=== PATIENT | male | born 1995 | race Caucasian/White ===

== ENCOUNTER 2020-08-28 12:05 | Observation (INO) | payer MEDICAID, OTHER, SELFPAY ==
[~2020-08-28] VITALS: Ht 162.6 cm; Wt 82.6 kg
[2020-08-28] MEDS ORDERED: NS 1,000 ML IV ONE ×3 (12:30→18:00)
[2020-08-28 13:56] LABS: BASO % 0.8 % (0.0-1.0); EOS % 0.6 % (0.0-3.0); HEMATOCRIT 49.8 % (42.0-52.0); HEMOGLOBIN 17.2 g/dl (13.5-17.5); LYMPH # 1.4 10^3/uL (1.5-5.0); LYMPH % 27.2 % (24.0-44.0); MEAN CORPUSCULAR HEMOGLOBIN 30.9 pg (27.0-33.0); MEAN CORPUSCULAR HGB CONC 34.5 g/dl (32.0-36.5); MEAN CORPUSCULAR VOLUME 89.4 fl (80.0-96.0); MONO # 0.5 10^3/uL (0.0-0.8); MONO % 9.3 % (0.0-5.0); NEUTROPHILS # 3.3 10^3/uL (1.5-8.5); NEUTROPHILS % 61.7 % (36.0-66.0); PLATELET COUNT, AUTOMATED 272 10^3/uL (150-450); RED BLOOD COUNT 5.57 10^6/uL (4.30-6.10); WHITE BLOOD COUNT 5.3 10^3/uL (4.0-10.0)
[2020-08-28] MEDS ORDERED: ONDA8TAB10 PO (15:03)
[2020-08-28] MEDS ORDERED: FLUO20CA22 PO (15:03)
[2020-08-28] MEDS ORDERED: GABA800T4 PO (15:03)
[2020-08-28] MEDS ORDERED: SUMA50TA2 PO (15:03)
[2020-08-28] MEDS ORDERED: VYVA50CA4 PO (15:03)
[2020-08-28] MEDS ORDERED: LORA-622 PO (15:03)
[2020-08-28] MEDS ORDERED: TRAZ1TAB12 PO (15:03)
[2020-08-28] MEDS ORDERED: ALPR2TAB3 PO (15:03)
[2020-08-28] MEDS ORDERED: BUPR8SUB SL (15:03)
[2020-08-28 15:46] LABS: ACETAMINOPHEN LEVEL < 2.0 UG/ML (10.0-30.0); ALBUMIN 4.2 GM/DL (3.2-5.2); ALT/SGPT 27 U/L (12-78); BILIRUBIN,DIRECT 0.2 MG/DL (0.0-0.2); BILIRUBIN,TOTAL 0.6 MG/DL (0.2-1.0); BLOOD UREA NITROGEN 8 MG/DL (7-18); CALCIUM LEVEL 8.9 MG/DL (8.5-10.1); CARBON DIOXIDE LEVEL 28 MEQ/L (21-32); CHLORIDE LEVEL 106 MEQ/L (98-107); CPK CREATINE PHOSPHOKINASE 98 U/L (39-308); CREATININE FOR GFR 0.89 MG/DL (0.70-1.30); ETHYL ALCOHOL (ETHANOL) < 0.003 % (0.000-0.010); GLOMERULAR FILTRATION RATE > 60.0 (>60); GLUCOSE, FASTING 92 MG/DL (70-100); POTASSIUM SERUM 4.5 MEQ/L (3.5-5.1); SALICYLATE LEVEL < 1.7 MG/DL (5.0-30.0); SODIUM LEVEL 140 MEQ/L (136-145); TOTAL PROTEIN 7.1 GM/DL (6.4-8.2)
[2020-08-28] MEDS ORDERED: D5W/0.45% SODIUM CHLORIDE 1,000 ML IV ONE (16:00)
[2020-08-28] MEDS ORDERED: D5W/0.45% SODIUM CHLORIDE 1,000 ML IV SCH (16:27)
--- NOTE | 2020-08-28 17:06 | HPEPDOC ---
[facility] Medical History & Physical Date of Admission Aug 28, 2020 Date of Service: Aug 28, 2020 History and Physical CHIEF COMPLAINT: Altered mental status/intoxication with amphetamines and gabapentin HISTORY OF PRESENT ILLNESS (History is obtained from records) 24-year-old male with history of polysubstance abuse, alcohol, tobacco hair when marijuana, "DIRTY 30", brought in by police when the patient was found to be breaking into a vehicle vehicle's etcher printed circuit boards called the police and he was brought in and was found to be intoxicated with altered mental status. Emergency room social insurance analyst spoke with the patient's father in [place] Vishnu Pop, who is trying to obtain custody of the patient's son to remove him from foster care. The patient has lost custody of his son due to polysubstance abuse and addictions. He was previously living with his father and was subsequently evicted because of substance abuse and now return to [place]. Currently living in [place]. Patient's mother is . He does have grandparents, Barney Rowan [phone] in the emergency room. EKG was normal sinus rhythm, no prolonged QT, acetaminophen and aspirin were all negative. CBC, metabolic panel were negative. Per poison control. Patient is to be monitored overnight and discharged if stable in the morning. Patient denies any suicidal or homicidal ideation. Once he came around. Patient Saying "I'm so rry that I let everyone down . I let my father down." Patient is agreeable to seeing a psychiatrist in the morning for his depression and polysubstance abuse vehemently denies any suicidal ideation or suicidal attempt. Sitter has been placed due to altered mental status. Hospitalist was called to admit for observation overnight due to drug overdose, which was intentional. ASA, Acetaminophen, alcoho are negative. urine tox screen pending. Per records, pt had a drug overdose with amphetamines and gabapentin. PAST MEDICAL HISTORY: Polysubstance abuse heroin, methamphetamine "dirty 30", alcohol abuse, cigarette abuse PAST SURGICAL HISTORY: Unable to be obtained SOCIAL HISTORY: Polysubstance abuse with heroin, alcohol, methamphetamine, currently living in [place]. Lost custody of his son who is currently in foster care. Patient's father is trying to obtain custody of the patient's son in [place]. Half a pack a day cigarette abuse. Alcohol binge. Methamphetamine. Unemployed FAMILY HISTORY: Father alive, lives in [place] phone number [phone] Vishnu POP Mother due to cancer ALLERGIES: Please see below. REVIEW OF SYSTEMS: Unable to obtain due to all of altered mental status HOME MEDICATIONS: Please see below. PHYSICAL EXAMINATION: VITAL SIGNS: See below General: Diaphoretic, tearful and crying at the bedside agitated but cooperative, non-belligerent, awake, alert, oriented to himself rambling HEENT: Pupils equally round, reactive to light and accommodation. Moist mucous membranes. No JVD, thyromegaly, no cervical lymphadenopathy CARDIOVASCULAR: Sinus rhythm, regular rate rhythm, S1, S2. No murmurs noted LUNGS: Clear to auscultation. No wheezing, rales or rhonchi ABDOMEN: Positive bowel sounds, soft, nontender, nondistended. No hepatospl enomegaly. No abdominal bruit EXTREMITIES: No cyanosis, clubbing or pitting edema NEUROLOGICAL: Confused, lethargic but arousable, tearful, not fully following commands slightly incoherent and rambling PSYCHIATRIC: low mood EKG sinus rhythm, ventricular rate of 72, indeterminate axis, QT 389 ms, QTC 413, QRS duration 102 LABORATORY DATA: See below. ASSESSMENT: 24-year-old male with history of polysubstance abuse, alcohol, tobacco hair when marijuana, "DIRTY 30", brought in by police when the patient was found to be breaking into a vehicle vehicle's etcher printed circuit boards called the police and he was brought in and was found to be intoxicated with altered mental status. Emergency room social insurance analyst spoke with the patient's father in [place] Vishnu Pop, who is trying to obtain custody of the patient's son to remove him from foster care. The patient has lost custody of his son due to polysubstance abuse and addictions. He was previously living with his father and was subseque ntly evicted because of substance abuse and now return to [place]. Currently living in [place]. Patient's mother is . He does have grandparents, Barney Gay Anum [phone] in the emergency room. EKG was normal sinus rhythm, no prolonged QT, acetaminophen and aspirin were all negative. CBC, metabolic panel were negative. Per poison control. Patient is to be monitored overnight and discharged if stable in the morning. Patient denies any suicidal or homicidal ideation. Once he came around. Patient Saying "I'm sorry that I let everyone down . I let my father down." Patient is agreeable to seeing a psychiatrist in the morning for his depression and polysubstance abuse vehemently denies any suicidal ideation or suicidal attempt. Sitter has been placed due to altered mental status. Hospitalist was called to admit for observation overnight due to drug overdose, which was intentional. ASA, Acetaminophen, alcoho are negative. urine tox screen pending Acute toxic encephalopathy due to recreational drug ingestion -Patient will be admitted to medical surgical floor under observation Telemetry Overnight. EKG Has No Acute ST-T wave Changes or QRS Duration. He Does Not Appear to Have Any Signs of Aspiration Risk. Therefore, Can Advance Diet to Regular Diet with Plastic Utensils. Sitter to Be at the Bedside. He denies suicidal or homicidal ideation and is hoping to speaking with psychiatrist regarding his depression and polysubstance abuse in the morning. Obtain urine toxicology screen Recreational drug overdose with gabapentin and amphetamine Outpatient rehabilitation program. Monitor overnight on telemetry telemetry and discharged the morning if stable Polysubstance abuse with alcohol and tobacco abuse Obtain urine toxicology screen. Alcohol, tobacco cessation has been provided nicotine replacement therapy as needed Depression Patient is agreeable to seeing a psychiatrist in the morning. Once medically stable, will defer to the morning team for psychiatric consult for evaluation of depression or recreational drug overdose. Patient denies any suicidal or h omicidal ideation. DVT prophylaxis with heparin subcutaneous Vital Signs Vital Signs Date Time Temp Pulse Resp B/P (MAP) Pulse Ox O2 Delivery O2 Flow Rate FiO2 08/28/20 12:09 97.6 76 18 135/90 100 Room Air Laboratory Data Labs 24H Laboratory Tests 2 08/28/20 13:20: Immature Granulocyte % (Auto) 0.4, Neutrophils (%) (Auto) 61.7, Lymphocytes (%) (Auto) 27.2, Monocytes (%) (Auto) 9.3H, Eosinophils (%) (Auto) 0.6, Basophils (%) (Auto) 0.8, Neutrophils # (Auto) 3.3, Lymphocytes # (Auto) 1.4L, Monocytes # (Auto) 0.5, Eosinophils # (Auto) 0.0, Basophils # (Auto) 0.0, Nucleated Red Blood Cells % (auto) 0.0 08/28/20 14:54: Anion Gap 6L, Glomerular Filtration Rate > 60.0, Calcium Level 8.9, Total Bilirubin 0.6, Direct Bilirubin 0.2, Aspartate Amino Transf (AST/SGOT) 14, Alanine Aminotransferase (ALT/SGPT) 27, Alkaline Phosphatase 78, Total Creatine Kinase 98, Total Protein 7.1, Albumin 4.2, Albumin/Globulin Ratio 1.4, Thyroid Stimulating Hormone (TSH) 1.530, Salicylates Level < 1.7L, Acetaminophen Level < 2.0L, Ethyl Alcohol Level < 0.003 CBC/BMP Laboratory Tests 08/28/20 13:20 08/28/20 14:54 Home Medications Scheduled Buprenorphine HCl (Buprenorphine HCl) 8 Mg Tab.subl, 8 MG SL BID Fluoxetine Hcl (Fluoxetine HCl) 20 Mg Capsule, 20 MG PO DAILY WAITING FOR P/U AT [facility] Gabapentin (Gabapentin) 800 Mg Tablet, 800 MG PO TID Lisdexamfetamine Dimesylate (Vyvanse) 50 Mg Capsule, 50 MG PO DAILY Loratadine (Loratadine) 10 Mg Tablet, 10 MG PO DAILY Trazodone HCl (Trazodone HCl) 100 Mg Tablet, 100 MG PO QHS WAITING FOR P/U AT [facility] Scheduled PRN Alprazolam (Alprazolam) 2 Mg Tablet, 2 MG PO BID PRN for ANXIETY WAITING FOR P/U AT [facility] Ondansetron HCl (Ondansetron HCl) 8 Mg Tablet, 8 MG PO BID PRN for NAUSEA OR VOMITING Sumatriptan Succinate (Sumatriptan Succinate) 50 Mg Tablet, 50 MG PO ASDIRECTED PRN for MIGRAINE Allergies Coded Allergies: naloxone (Verified Allergy, Unknown, rash, 08/28/20) A-FIB/CHADSVASC A-FIB History Current/History of A-Fib/PAF?: No Current PO Anticoag Therapy: No Age/Risk Factor Scoring CHADSVASC: CHADSVASC Response (Comments) Value Age Risk Factor Age < 65 years old 0 Gender Risk Factor Male 0 Hx of CHF No 0 Hx of HTN No 0 Hx of Stroke/TIA/or VTE No 0 Hx of Diabetes No 0 Hx of Vascular Disease No 0 Total 0 Treatment Treatment ordered: NONE GRETCHEN DORSEY MD Aug 28, 2020 16:58
[2020-08-28 18:17] LABS: AMPHETAMINES LEVEL URINE POSITIVE (NEGATIVE); BARBITURATES URINE NEGATIVE (NEGATIVE); BENZODIAZEPINES URINE NEGATIVE (NEGATIVE); CANNABINOIDS URINE NEGATIVE (NEGATIVE); COCAINE METABOLITE URINE NEGATIVE (NEGATIVE); METHADONE URINE NEGATIVE (NEGATIVE); OPIATES URINE NEGATIVE (NEGATIVE); PHENCYCLIDINE URINE NEGATIVE (NEGATIVE)
--- NOTE | 2020-08-28 19:47 | ECGEPIP ---
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
[2020-08-28] MEDS: HEPARIN SOD (PORCINE) 5000UNITS/ML 1ML VIAL/SYRINGE SQ SCH (21:41)
[2020-08-28 22:00] VITALS: BP 125/82
[2020-08-29] MEDS: HEPARIN SOD (PORCINE) 5000UNITS/ML 1ML VIAL/SYRINGE SQ SCH (05:30)
[2020-08-29 06:00] VITALS: BP 142/64
[2020-08-29] MEDS ORDERED: NICOTINE 21MG/24HR 1 EA TRANSDERMAL TD SCH (09:00)
--- NOTE | 2020-08-29 20:53 | DS.PDOC ---
Discharge Summary General Date of Admission Aug 28, 2020 at 12:06 Date of Discharge Aug 29, 2020 Attending Physician: JP BURROUGHS DO Discharge Summary PROCEDURES PERFORMED DURING STAY: None. ADMITTING DIAGNOSES: 1. Acute toxic encephalopathy due to recreational drug ingestion 2. Recreational drug overdose with gabapentin and amphetamine 3. Polysubstance abuse with alcohol and tobacco 4. Depression DISCHARGE DIAGNOSES: 1. Acute toxic encephalopathy due to recreational drug ingestion 2. Recreational drug overdose with gabapentin and amphetamine 3. Polysubstance abuse with alcohol and tobacco 4. Depression COMPLICATIONS/CHIEF COMPLAINT: Overdose. HISTORY OF PRESENT ILLNESS: Patient is a 34-year-old male with history of polysubstance abuse, alcohol, tobacco, recreational drug use with "DIRTY 30"who is brought in by the police for breaking into a vehicle. Vehicle on her occult the police and the patient was brought in intoxicated. The emergency room social media senior associate spoke with the patient's father in [place] (Vishnu Lilly, ). The father stranded obtain custody of the patient's son to remove him from foster care. The patient has lost custody to his son due to polysubstance abuse and is addictions. The patient was previously living with his father, but then was evicted because of substance abuse and now has returned to [place]. His grandparents are Barney Salinas and Deidra Rowan [phone]. He was admitted for overnight observation. He had agreed to see a psychiatrist in the morning. HOSPITAL COURSE: No events on telemetry overnight. He is willing to see a psychiatrist in the morning. I contacted the psychiatrist, but he could only see the patient afternoon. Patient was anxious to go home. Patient denied any suicidal or homicidal thoughts. Denied any thoughts of self-harm. Around 12:20 PM patient left AGAINST MEDICAL ADVICE DISCHARGE MEDICATIONS: Please see below. ALLERGIES: Please see below. PHYSICAL EXAMINATION ON DISCHARGE: VITAL SIGNS: Please see below. GENERAL: Comfortable, in no apparent distress. HEENT: Head normocephalic/atraumatic, EOMI, sclera clear. NECK: Supple RESPIRATORY: Lungs clear to auscultation bilaterally, no rales, wheeze or rhonchi. CARDIOVASCULAR: Regular rate and rhythm. ABDOMEN: Soft, nontender, no guarding or rebound tenderness. Normal bowel sounds. MUSCLE SKELETAL: Muscle strength 5/5 in all extremities. NEUROLOGICAL: CN 312 grossly intact PSYCHOLOGICAL: Anxious LABORATORY DATA: Please see below. PROGNOSIS: Guarded ACTIVITY: As tolerated. DIET: Tolerated DISCHARGE PLAN: Patient had left AGAINST MEDICAL ADVICE DISPOSITION: 07 Against Medical Advice. DISCHARGE INSTRUCTIONS: 1. He should set himself up with a primary care provider 2. He should follow with a psychiatrist 3. He should return to the ED if there are any further problems DISCHARGE CONDITION: Guarded. Total time spent on discharge summary 25 minutes Vital Signs/I&Os Vital Signs Date Time Temp Pulse Resp B/P (MAP) Pulse Ox O2 Delivery O2 Flow Rate FiO2 08/29/20 06:00 99.1 69 16 142/64 (90) 99 Room Air I&O- Last 24 Hours up to 6 AM 08/29/20 06:00 Intake Total 3605 ml Output Total 280 ml Balance 3325 ml Discharge Medications Scheduled Buprenorphine HCl (Buprenorphine HCl) 8 Mg Tab.subl, 8 MG SL BID, (Reported) Fluoxetine Hcl (Fluoxetine HCl) 20 Mg Capsule, 20 MG PO DAILY, (Reported) WAITING FOR P/U AT [facility] Gabapentin (Gabapentin) 800 Mg Tablet, 800 MG PO TID, (Reported) Lisdexamfetamine Dimesylate (Vyvanse) 50 Mg Capsule, 50 MG PO DAILY, (Reported) Loratadine (Loratadine) 10 Mg Tablet, 10 MG PO DAILY, (Reported) Trazodone HCl (Trazodone HCl) 100 Mg Tablet, 100 MG PO QHS, (Reported) WAITING FOR P/U AT [facility] Scheduled PRN Alprazolam (Alprazolam) 2 Mg Tablet, 2 MG PO BID PRN for ANXIETY, (Reported) WAITING FOR P/U AT [facility] Ondansetron HCl (Ondansetron HCl) 8 Mg Tablet, 8 MG PO BID PRN for NAUSEA OR VOMITING, (Reported) Sumatriptan Succinate (Sumatriptan Succinate) 50 Mg Tablet, 50 MG PO ASDIRECTED PRN for MIGRAINE, (Reported) Allergies Coded Allergies: naloxone (Verified Allergy, Unknown, rash, 08/28/20) JP BURROUGHS DO Aug 29, 2020 20:53
--- NOTE | 2020-08-31 12:01 | MHIPN ---
HOSPITALIST PHONE CONVERSATION DATE: 08/29/2020 I was called by the Hospitalist Team, Dr. Nuñez, and was asked to consult on the patient, who had taken an overdose, had been admitted to Medicine, and was now medically stable. I informed the Hospitalist that I would see him later in the day. I was called later, was informed the patient wanted to leave, and that he was going to sign out against medical advice. I informed the Hospitalist that I would not be able to come and see the patient until after clinic was done, in the afternoon. I also indicated that if the patient were to leave, the Hospitalist may wish to consider having the patient brought back to the hospital, involuntarily, to be assessed in the Emergency Room if there were concerns regarding the patients ability to maintain his safety, or that of others. The Hospitalist informed me the patient had suggested that this was not an attempt to kill himself. The Hospitalist called later to indicate that the patient had signed out against medical advice. I again reiterated that they may still consider bringing him back to the hospital involuntarily if there were concerned about his ability to maintain safety. NICOLE
--- NOTE | 2020-09-04 12:55 | REP ---
CT OF THE BRAIN: 08/28/20 HISTORY: Altered mental status, memory loss. CT brain performed without the use of intravenous contrast, in the axial plane with coronal reconstruction images performed. The ventricles are normal in size and position. There is no midline shift or mass. Shaw white differentiation is well maintained. There is no acute intracranial hemorrhage or extra axial fluid collection. Bone window examination is unremarkable. Mastoid air cells and visualized paranasal sinuses are well aerated and clear. IMPRESSION: Negative non-contrast CT brain. Preliminary report provided by virtual radiology at the time of the exam. [facility]
--- NOTE | 2020-09-06 09:38 | MHIPN ---
DATE: 08/28/2020 VITAL SIGNS: Blood pressure 112/60, pulse 47, temperature 98.6. CHIEF COMPLAINT: Says feels okay. SUBJECTIVE: I am assigned to his care, as Dr Ann is away today. The patient says he feels okay, somewhat vague about this, but suggests is less anxious and less depressed. MENTAL STATUS EXAM: Fairly neat. He is seen in the presence of staff. He is cooperative, although somewhat superficially so, no agitation. No psychomotor retardation. Mood is good. Affect is restricted in range. Denies any suicidal thoughts or intents. No homicidal ideations or intents. Currently, no evidence of any psychosis. Cognition grossly intact. Judgment and insight possibly remain compromised. ASSESSMENT: Unspecified psychotic disorder, possibly due to substance misuse. PLAN: Continue current care, observations, and should this progress continue, plans are to discharge him in the near future, further recommendations made depending on the clinical picture. NICOLE
== END 2020-08-29 12:09 | disposition left against medical advice (07) ==
LOC: M ED 12:05 → EDBD 12:05 → M ED INP 12:06 → M MSPAV 21:21
PROVIDERS: ADMIT General Practice; ATTEND Internal Medicine
DX: G92 Toxic encephalopathy (principal); T43.621A Poisoning by amphetamines, accidental (unintentional), initial encounter; F19.10 Other psychoactive substance abuse, uncomplicated; F17.218 Nicotine dependence, cigarettes, with other nicotine-induced disorders; F10.10 Alcohol abuse, uncomplicated; F32.9 Major depressive disorder, single episode, unspecified; F11.10 Opioid abuse, uncomplicated; Z88.8 Allergy status to other drugs, medicaments and biological substances; Z79.899 Other long term (current) drug therapy
CPT/HCPCS: 36415; 70450; 80048; 80076; 80307; 82550; 84443; 85025; 93005; 93041; 94760; 96361; 96374; 99285; G0480; J1644

== ENCOUNTER 2020-08-29 17:21 | Inpatient (IN) | payer MEDICAID, OTHER, SELFPAY ==
[~2020-08-29] VITALS: Ht 162.6 cm; Wt 74.3 kg
[~2020-08-29 17:21] MED LIST: ALPR2TAB3 PO; BUPR8SUB SL; FLUO20CA22 PO; GABA800T4 PO; LORA-622 PO; ONDA8TAB10 PO; SUMA50TA2 PO; TRAZ1TAB12 PO; VYVA50CA4 PO
[2020-08-29 20:20] LABS: HEMATOCRIT 40.2 % (42.0-52.0); MEAN CORPUSCULAR HEMOGLOBIN 30.1 pg (27.0-33.0); MEAN CORPUSCULAR HGB CONC 34.3 g/dl (32.0-36.5); MEAN CORPUSCULAR VOLUME 87.8 fl (80.0-96.0); PLATELET COUNT, AUTOMATED 231 10^3/uL (150-450); RED BLOOD COUNT 4.58 10^6/uL (4.30-6.10); WHITE BLOOD COUNT 5.5 10^3/uL (4.0-10.0)
[2020-08-29 20:38] LABS: HEMOGLOBIN 13.8 g/dl (13.5-17.5)
[2020-08-29 20:44] LABS: AMPHETAMINES LEVEL URINE NEGATIVE (NEGATIVE); BARBITURATES URINE NEGATIVE (NEGATIVE); BENZODIAZEPINES URINE NEGATIVE (NEGATIVE); CANNABINOIDS URINE NEGATIVE (NEGATIVE); COCAINE METABOLITE URINE NEGATIVE (NEGATIVE); METHADONE URINE NEGATIVE (NEGATIVE); OPIATES URINE NEGATIVE (NEGATIVE); PHENCYCLIDINE URINE NEGATIVE (NEGATIVE)
[2020-08-29 20:52] LABS: ACETAMINOPHEN LEVEL < 2.0 UG/ML (10.0-30.0); ALBUMIN 3.8 GM/DL (3.2-5.2); ALT/SGPT 20 U/L (12-78); BILIRUBIN,DIRECT 0.2 MG/DL (0.0-0.2); BILIRUBIN,TOTAL 0.5 MG/DL (0.2-1.0); BLOOD UREA NITROGEN 5 MG/DL (7-18); CALCIUM LEVEL 8.4 MG/DL (8.5-10.1); CARBON DIOXIDE LEVEL 28 MEQ/L (21-32); CHLORIDE LEVEL 108 MEQ/L (98-107); CREATININE FOR GFR 0.65 MG/DL (0.70-1.30); ETHYL ALCOHOL (ETHANOL) < 0.003 % (0.000-0.010); GLOMERULAR FILTRATION RATE > 60.0 (>60); GLUCOSE, FASTING 83 MG/DL (70-100); POTASSIUM SERUM 3.6 MEQ/L (3.5-5.1); SALICYLATE LEVEL < 1.7 MG/DL (5.0-30.0); SODIUM LEVEL 142 MEQ/L (136-145); TOTAL PROTEIN 6.4 GM/DL (6.4-8.2)
[2020-08-30] MEDS ORDERED: MOM 30ML SUSPENSION UDC PO PRN (04:00)
[2020-08-30] MEDS ORDERED: MAALOX 30 ML SUSP *UDC PO PRN (04:00)
[2020-08-30 05:41] VITALS: BP 139/81
--- NOTE | 2020-08-30 09:07 | MHDSPDOC ---
[facility] Discharge Summary Discharge Summary DATE OF ADMISSION: Aug 30, 2020 at 03:56 DATE OF DISCHARGE: DISCHARGE DIAGNOSES: 1. . 2. . REASON FOR ADMISSION: CONSULTANTS INVOLVED: TREATMENT AND PROGRESS ON THE UNIT : . HOSPITAL COURSE: DISCHARGE ASSESSMENT: MENTAL STATUS EXAMINATION ON DISCHARGE: Patient is a -year old male, who is . Speech is . Language skills are . Thought processes including: . Thought content: . Abstract reasoning, and computation: . Description of associations: . Description of abnormal or psychotic thoughts: . Judgment: . Insight: . Orientation to . Recent and remote memory: . Attention span and concentration: . Language: . Fund of knowledge: . Mood: . Affect: . MEDICATIONS ON DISCHARGE: - for . - for . - for . PLAN/FOLLOWUP ARRANGEMENTS: . The amount of time spent in the coordination of care for this patient was approximately minutes. Vital Signs/I&Os Vital Signs Date Time Temp Pulse Resp B/P (MAP) Pulse Ox O2 Delivery O2 Flow Rate FiO2 08/30/20 05:41 98.9 68 16 139/81 (100) 97 Room Air Laboratory Data Labs 24H Laboratory Tests 2 08/29/20 20:03: Nucleated Red Blood Cells % (auto) 0.0, Anion Gap 6L, Glomerular Filtration Rate > 60.0, Calcium Level 8.4L, Total Bilirubin 0.5, Direct Bilirubin 0.2, Aspartate Amino Transf (AST/SGOT) 12, Alanine Aminotransferase (ALT/SGPT) 20, Alkaline Phosphatase 76, Total Protein 6.4, Albumin 3.8, Albumin/Globulin Ratio 1.5, Thyroid Stimulating Hormone (TSH) 1.720, Salicylates Level < 1.7L, Acetaminophen Level < 2.0L, Ethyl Alcohol Level < 0.003 08/29/20 20:08: Urine Opiates Screen NEGATIVE, Urine Methadone Screen NEGATIVE, Urine Abbey turates Screen NEGATIVE, Urine Phencyclidine Screen NEGATIVE, Urine Amphetamines Screen NEGATIVE, Urine Benzodiazepines Screen NEGATIVE, Urine Cocaine Metabolite Screen NEGATIVE, Urine Cannabinoids Screen NEGATIVE CBC/BMP Laboratory Tests 08/29/20 20:03 Medications Scheduled Buprenorphine HCl (Buprenorphine HCl) 8 Mg Tab.subl, 8 MG SL BID, (Reported) Fluoxetine Hcl (Fluoxetine HCl) 20 Mg Capsule, 20 MG PO DAILY, (Reported) WAITING FOR P/U AT [facility] Gabapentin (Gabapentin) 800 Mg Tablet, 800 MG PO TID, (Reported) Lisdexamfetamine Dimesylate (Vyvanse) 50 Mg Capsule, 50 MG PO DAILY, (Reported) Loratadine (Loratadine) 10 Mg Tablet, 10 MG PO DAILY, (Reported) Trazodone HCl (Trazodone HCl) 100 Mg Tablet, 100 MG PO QHS, (Reported) WAITING FOR P/U AT [facility] Scheduled PRN Alprazolam (Alprazolam) 2 Mg Tablet, 2 MG PO BID PRN for ANXIETY, (Reported) WAITING FOR P/U AT [facility] Ondansetron HCl (Ondansetron HCl) 8 Mg Tablet, 8 MG PO BID PRN for NAUSEA OR VOMITING, (Reported) Sumatriptan Succinate (Sumatriptan Succinate) 50 Mg Tablet, 50 MG PO ASDIRECTED PRN for MIGRAINE, (Reported) Allergies Coded Allergies: naloxone (Verified Allergy, Unknown, rash, 08/28/20) BUBBA LEYVA DO Aug 30, 2020 09:07
--- NOTE | 2020-08-30 09:08 | MHHPEPDOC ---
[facility] History & Physical History and Physical DATE OF ADMISSION: Aug 30, 2020 at 03:56 Subjective HPI: Willian presents today for concerns regarding his suicidal thoughts and thoughts of self-harm, but with no plan. Patient affirms hearing voices that are copying him.Patient is unable to relay any reasonable history, appears confused. MEDICATIONS: Current medications include Prozac, Trazadone, Gabapentin, Vyvanse, Suboxone, and Xanax MEDICAL HISTORY: Patient does not have any history of self-harm ideation. Patient has a psychiatric doctor through [facility]. Patient has never been to a mental health unit. SOCIAL HISTORY - LIVING SITUATION: Patient lives alone near [place]. He does not have family in the area. SOCIAL HISTORY - SUBSTANCE USE: Patient drinks beers. SOCIAL HISTORY - SMOKING: He has a history of heroin use and has not used any substance recently. Objective Behavior: Staring at floor. Thought Form: Tangential. Incoherent. Thought Content: Unable to comment about thought process. Judgement: Poor. Insight: Poor. 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 Hold Xanax, Suboxone, and Vyvanse, as substance-induced may be present. Start Zyprexa 5 mg nightly to help with psychotic symptoms. Patient will likely be here for 1-5 days. Patient presenting problems seem to be related to psychotic problems. Vital Signs Vital Signs Date Time Temp Pulse Resp B/P (MAP) Pulse Ox O2 Delivery O2 Flow Rate FiO2 08/30/20 05:41 98.9 68 16 139/81 (100) 97 Room Air Laboratory Data 24H Labs Laboratory Tests 2 08/29/20 20:03: Nucleated Red Blood Cells % (auto) 0.0, Anion Gap 6L, Glomerular Filtration Rate > 60.0, Calcium Level 8.4L, Total Bilirubin 0.5, Direct Bilirubin 0.2, Aspartate Amino Transf (AST/SGOT) 12, Alanine Aminotransferase (ALT/SGPT) 20, Alkaline Phosphatase 76, Total Protein 6.4, Albumin 3.8, Albumin/Globulin Ratio 1.5, Thyroid Stimulating Hormone (TSH) 1.720, Salicylates Level < 1.7L, Acetaminophen Level < 2.0L, Ethyl Alcohol Level < 0.003 08/29/20 20:08: Urine Opiates Screen NEGATIVE, Urine Methadone Screen NEGATIVE, Urine Barbit urates Screen NEGATIVE, Urine Phencyclidine Screen NEGATIVE, Urine Amphetamines Screen NEGATIVE, Urine Benzodiazepines Screen NEGATIVE, Urine Cocaine Metabolite Screen NEGATIVE, Urine Cannabinoids Screen NEGATIVE CBC/BMP Laboratory Tests 08/29/20 20:03 Medications Scheduled Buprenorphine HCl (Buprenorphine HCl) 8 Mg Tab.subl, 8 MG SL BID, (Reported) Fluoxetine Hcl (Fluoxetine HCl) 20 Mg Capsule, 20 MG PO DAILY, (Reported) WAITING FOR P/U AT [facility] Gabapentin (Gabapentin) 800 Mg Tablet, 800 MG PO TID, (Reported) Lisdexamfetamine Dimesylate (Vyvanse) 50 Mg Capsule, 50 MG PO DAILY, (Reported) Loratadine (Loratadine) 10 Mg Tablet, 10 MG PO DAILY, (Reported) Trazodone HCl (Trazodone HCl) 100 Mg Tablet, 100 MG PO QHS, (Reported) WAITING FOR P/U AT [facility] Scheduled PRN Alprazolam (Alprazolam) 2 Mg Tablet, 2 MG PO BID PRN for ANXIETY, (Reported) WAITING FOR P/U AT [facility] Ondansetron HCl (Ondansetron HCl) 8 Mg Tablet, 8 MG PO BID PRN for NAUSEA OR VOMITING, (Reported) Sumatriptan Succinate (Sumatriptan Succinate) 50 Mg Tablet, 50 MG PO ASDIRECTED PRN for MIGRAINE, (Reported) Allergies Coded Allergies: naloxone (Verified Allergy, Unknown, rash, 08/28/20) BUBBA LEYVA DO Aug 30, 2020 09:07
[2020-08-30] MEDS ORDERED: ONDANSETRON 4 MG TAB PO PRN (11:30)
[2020-08-30] MEDS ORDERED: SUMAtriptan SUCCINATE 25 MG TAB PO PRN (11:30)
[2020-08-30] MEDS: FLUoxetine 20 MG CAP PO SCH (12:36)
[2020-08-30] MEDS: LORATADINE 10 MG TAB PO SCH (12:37)
[2020-08-30] MEDS: GABAPENTIN 400 MG CAP PO SCH ×3 (12:37→21:00)
--- NOTE | 2020-08-30 16:11 | HPEPDOC ---
[facility] Medical History & Physical Date of Admission Aug 30, 2020 Date of Service: Aug 30, 2020 History and Physical Chief complaint: Who presented to the hospital with complaints of the police lying History of present illness: Patient is a 24-year-old male with no significant past medical history who was brought to the hospital by police. As per police they report that patient was expressing homicidal/suicidal ideation. Patient reports that this is a lie. He was subsequently admitted to the inpatient mental health service under the care of psychiatry hospitalist service was called for medical screening evaluation. Patient denies any headache, nausea, vomiting, chest pain, short of breath, palpitations, abdominal pain, constipation, diarrhea, or urinary discomfort. He denies any recent fevers or chills. Patient reports that he has experience a weight loss of 10-15 pounds over last 2-3 months because he stopped working out. Denies any changes in his weight. 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 online Review of Systems: 10 point review of systems complete, all negative otherwise stated in HPI Physical exam: - Vitals: BP [139/81], HR [68], RR [16], Sat [97%RA], Temp [98.9F] - General: Lying in bed, Speaking in full sentences, AAOx3 - HEENT: NC, AT, PERRLA - CVS: RRR, +S1S2 - Lungs: Fair air entry bilaterally, No wheezing / rales / rhonchi - Abdomen: Soft, Non-distended, Non-tender - Extremities: No lower extremity edema, No calf tenderness - Neuro: No focal motor or sensory deficit - Skin: No visible rashes Assessment and Plan: Suicidal/homicidal ideation - Patient was admitted to the inpatient mental health unit under the care of psychiatry - Currently being managed by psychiatry No significant past medical history DVT prophylaxis - Will continue with early ambulation Female electrolysis engineer was present throughout the duration of his history and physical examination Thank you for this consultation; please re-consult hospitalist services as needed. We will sign off at this time Vital Signs Vital Signs Date Time Temp Pulse Resp B/P (MAP) Pulse Ox O2 Delivery O2 Flow Rate FiO2 08/30/20 05:41 98.9 68 16 139/81 (100) 97 Room Air Laboratory Data Labs 24H Laboratory Tests 2 08/29/20 20:03: Nucleated Red Blood Cells % (auto) 0.0, Anion Gap 6L, Glomerular Filtration Rate > 60.0, Calcium Level 8.4L, Total Bilirubin 0.5, Direct Bilirubin 0.2, Aspartate Amino Transf (AST/SGOT) 12, Alanine Aminotransferase (ALT/SGPT) 20, Alkaline Phosphatase 76, Total Protein 6.4, Albumin 3.8, Albumin/Globulin Ratio 1.5, Thyroid Stimulating Hormone (TSH) 1.720, Salicylates Level < 1.7L, Acetaminophen Level < 2.0L, Ethyl Alcohol Level < 0.003 08/29/20 20:08: Urine Opiates Screen NEGATIVE, Urine Methadone Screen NEGATIVE, Urine Barbiturates Screen NEGATIVE, Urine Phencyclidine Screen NEGATIVE, Urine Amphetamines Screen NEGATIVE, Urine Benzodiazepines Screen NEGATIVE, Urine Cocaine Metabolite Screen NEGATIVE, Urine Cannabinoids Screen NEGATIVE CBC/BMP Laboratory Tests 08/29/20 20:03 Home Medications Scheduled Buprenorphine HCl (Buprenorphine HCl) 8 Mg Tab.subl, 8 MG SL BID Fluoxetine Hcl (Fluoxetine HCl) 20 Mg Capsule, 20 MG PO DAILY WAITING FOR P/U AT [facility] Gabapentin (Gabapentin) 800 Mg Tablet, 800 MG PO TID Lisdexamfetamine Dimesylate (Vyvanse) 50 Mg Capsule, 50 MG PO DAILY Loratadine (Loratadine) 10 Mg Tablet, 10 MG PO DAILY Trazodone HCl (Trazodone HCl) 100 Mg Tablet, 100 MG PO QHS WAITING FOR P/U AT [facility] Scheduled PRN Alprazolam (Alprazolam) 2 Mg Tablet, 2 MG PO BID PRN for ANXIETY WAITING FOR P/U AT [facility] Ondansetron HCl (Ondansetron HCl) 8 Mg Tablet, 8 MG PO BID PRN for NAUSEA OR VOMITING Sumatriptan Succinate (Sumatriptan Succinate) 50 Mg Tablet, 50 MG PO ASDIRECTED PRN for MIGRAINE Allergies Coded Allergies: naloxone (Verified Allergy, Unknown, rash, 08/28/20) SUSAN RODRIGUEZ MD Aug 30, 2020 16:11
[2020-08-30 17:28] VITALS: BP 137/69
[2020-08-30] MEDS: OLANZapine ORAL DISINTEGRATING TAB 5MG PO SCH (21:00)
[2020-08-31 06:34] VITALS: BP 143/77
[2020-08-31] MEDS ORDERED: INFLUENZA QUADRIVALENT PF VACCINE 0.5ML SYRINGE IM ONE (09:00)
--- NOTE | 2020-08-31 10:05 | MHIPNPDOC ---
[facility] Progress Note Progress Note DATE OF SERVICE: 08/31/20 Subjective HPI: Willian presents today for evaluation. Patient denies fatigue, headaches, dizziness, suicidal thoughts, homicidal thoughts, and voices. MEDICATIONS: Current medications include nightly Zyprexa. MEDICAL HISTORY: Patient has a history of hearing voices and has been to the hospital before. SOCIAL HISTORY - SUBSTANCE USE: Patient denies substance use. Objective Appearance: Hygiene - Fair. Affect: More reactive. Speech: More fluid. Cognition: Improved. Thought Form: More linear and logical. Insight: Better insight. 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 Potential discharge on Friday. Vital Signs Vital Signs Date Time Temp Pulse Resp B/P (MAP) Pulse Ox O2 Delivery O2 Flow Rate FiO2 08/31/20 06:34 97.4 65 16 143/77 (99) 08/30/20 05:41 97 Room Air Current Medications Current Medications Medications (Trade) Dose Ordered Sig/Roel Route PRN Reason Start Time Stop Time Status Last Admin Dose Admin Acetaminophen (Tylenol Tab) 650 mg Q6HP PRN PO HEADACHE or DISCOMFORT 08/30/20 04:00 Al Hydrox/Mg Hydrox/Simethicone (Mylanta) 30 ml Q4HP PRN PO HEARTBURN/INDIGESTION 08/30/20 04:00 Fluoxetine HCl (PROzac) 20 mg DAILY PO 08/30/20 09:00 08/30/20 12:36 Gabapentin (Neurontin) 800 mg TID PO 08/30/20 09:00 08/30/20 16:31 Home Med (Med Rec Complete!) ASDIRECTED XX 08/29/20 19:00 08/29/20 18:50 DC Loratadine (Claritin) 10 mg DAILY PO 08/30/20 09:00 08/30/20 12:37 Magnesium Hydroxide (Milk Of Magnesia) 30 ml DAILYPRN PRN PO CONSTIPATION 08/30/20 04:00 Olanzapine (ZyPREXA ZYDIS) 5 mg Q4HP PRN PO ANXIETY/AGITATION 08/30/20 04:15 Olanzapine (ZyPREXA ZYDIS) 5 mg QHS PO 08/30/20 21:00 Ondansetron HCl (Zofran) 8 mg BID PRN PO NAUSEA OR VOMITING 08/30/20 11:30 Sumatriptan Succinate (Imitrex) 50 mg ASDIRECTED PRN PO MIGRAINE 08/30/20 11:30 Trazodone HCl (Desyrel) 50 mg QHSP PRN PO INSOMNIA 08/30/20 04:00 Allergies Coded Allergies: naloxone (Verified Allergy, Unknown, rash, 08/28/20) BUBBA LEYVA DO Aug 31, 2020 10:05
[2020-08-31] MEDS: LORATADINE 10 MG TAB PO SCH (10:07)
[2020-08-31] MEDS: GABAPENTIN 400 MG CAP PO SCH ×3 (10:07→21:00)
[2020-08-31] MEDS: FLUoxetine 20 MG CAP PO SCH (10:07)
[2020-08-31] MEDS: NICOTINE 21MG/24HR 1 EA TRANSDERMAL TD SCH (12:41)
[2020-08-31] MEDS: OLANZapine ORAL DISINTEGRATING TAB 5MG PO SCH (21:00)
[2020-09-01] MEDS: traZODone 50 MG TAB PO PRN ×2 (01:30→20:31)
[2020-09-01] MEDS: OLANZapine ORAL DISINTEGRATING TAB 5MG PO PRN (01:30)
[2020-09-01 06:28] VITALS: BP 112/60
[2020-09-01] MEDS: LORATADINE 10 MG TAB PO SCH (09:54)
[2020-09-01] MEDS: NICOTINE 21MG/24HR 1 EA TRANSDERMAL TD SCH (09:55)
[2020-09-01] MEDS: FLUoxetine 20 MG CAP PO SCH (09:55)
[2020-09-01] MEDS: GABAPENTIN 400 MG CAP PO SCH ×3 (09:55→20:31)
[2020-09-01 18:06] VITALS: BP 145/89
[2020-09-01] MEDS: OLANZapine ORAL DISINTEGRATING TAB 5MG PO SCH (20:31)
[2020-09-02 06:36] VITALS: BP 117/67
[2020-09-02] MEDS: NICOTINE 21MG/24HR 1 EA TRANSDERMAL TD SCH (09:55)
[2020-09-02] MEDS: GABAPENTIN 400 MG CAP PO SCH ×3 (09:55→21:29)
[2020-09-02] MEDS: LORATADINE 10 MG TAB PO SCH (09:55)
[2020-09-02] MEDS: FLUoxetine 20 MG CAP PO SCH (09:55)
[2020-09-02 18:04] VITALS: BP 129/67
[2020-09-02] MEDS: traZODone 50 MG TAB PO PRN (21:29)
[2020-09-02] MEDS: OLANZapine ORAL DISINTEGRATING TAB 5MG PO SCH (21:30)
[2020-09-03 06:57] VITALS: BP 138/72
[2020-09-03] MEDS: GABAPENTIN 400 MG CAP PO SCH ×3 (09:00→21:56)
[2020-09-03] MEDS: NICOTINE 21MG/24HR 1 EA TRANSDERMAL TD SCH (09:00)
[2020-09-03] MEDS: LORATADINE 10 MG TAB PO SCH ×2 (09:00→16:26)
[2020-09-03] MEDS: FLUoxetine 20 MG CAP PO SCH ×2 (09:00→16:25)
--- NOTE | 2020-09-03 16:16 | MHIPN ---
DATE: 09/02/2020 The patient today states that he is doing "good." He is minimizing all the events prior to admission. He has no complaints, but he appears to be confused. MENTAL STATUS EXAMINATION: This patient is alert and oriented times three. Eye contact is fair. Psychomotor activity is normal. there is no formal thought disorder noted. Mood is good. Affect is flat. He denies it but appears to be responding to internal stimuli. Denies homicidal or suicidal ideations. Insight and judgment are fair. DIAGNOSIS: Unspecified psychotic disorder. TREATMENT PLAN: The patient remains with very little insight and appears to be still psychotic. We will continue to titrate the patient's medications as indicted. [facility]
[2020-09-03 18:06] VITALS: BP 128/69
[2020-09-03] MEDS: traZODone 50 MG TAB PO PRN (21:55)
[2020-09-03] MEDS: OLANZapine ORAL DISINTEGRATING TAB 5MG PO SCH (21:56)
[2020-09-04 06:34] VITALS: BP 119/71
[2020-09-04] MEDS: NICOTINE 21MG/24HR 1 EA TRANSDERMAL TD SCH (09:00)
--- NOTE | 2020-09-04 09:45 | MHIPNPDOC ---
[facility] Progress Note Progress Note DATE OF SERVICE: 09/04/20 Subjective HPI: Willian presents today for follow up, he has been notable more psychotic and paranoid, he reports having AH as well as unusul thoughts that people are out to get him, during the interview, he interacts little other than to ask to be discharge but is redirected to needing to work more on treatment due to his increasingly psychotic symptoms MEDICATIONS: Current medications include nightly Zyprexa. Objective Appearance: Hygiene - Fair. Affect: flat Speech: nearly mute Cognition: impaired Thought Form: perseverative Insight: poor insight Assessment F29 Unspecified psychosis not due to a substance or known physiological con dition Plan Continue Zyprexa 5mg QHS, will likely need more inpatient time due to continued psychotic symptoms. Vital Signs Vital Signs Date Time Temp Pulse Resp B/P (MAP) Pulse Ox O2 Delivery O2 Flow Rate FiO2 09/04/20 06:34 98.7 86 16 119/71 (87) 97 Room Air Current Medications Current Medications Medications (Trade) Dose Ordered Sig/Roel Route PRN Reason Start Time Stop Time Status Last Admin Dose Admin Acetaminophen (Tylenol Tab) 650 mg Q6HP PRN PO HEADACHE or DISCOMFORT 08/30/20 04:00 Al Hydrox/Mg Hydrox/Simethicone (Mylanta) 30 ml Q4HP PRN PO HEARTBURN/INDIGESTION 08/30/20 04:00 Fluoxetine HCl (PROzac) 20 mg DAILY PO 08/30/20 09:00 09/03/20 16:25 Gabapentin (Neurontin) 800 mg TID PO 08/30/20 09:00 09/03/20 21:56 Home Med (Med Rec Complete!) ASDIRECTED XX 08/29/20 19:00 08/29/20 18:50 DC Loratadine (Claritin) 10 mg DAILY PO 08/30/20 09:00 09/03/20 16:26 Magnesium Hydroxide (Milk Of Magnesia) 30 ml DAILYPRN PRN PO CONSTIPATION 08/30/20 04:00 Nicotine (Nicoderm Cq 21mg) 1 patch DAILY TD 08/31/20 09:00 09/02/20 09:55 Olanzapine (ZyPREXA ZYDIS) 5 mg Q4HP PRN PO ANXIETY/AGITATION 08/30/20 04:15 09/01/20 01:30 Olanzapine (ZyPREXA ZYDIS) 5 mg QHS PO 08/30/20 21:00 09/03/20 21:56 Ondansetron HCl (Zofran) 8 mg BID PRN PO NAUSEA OR VOMITING 08/30/20 11:30 Sumatriptan Succinate (Imitrex) 50 mg ASDIRECTED PRN PO MIGRAINE 08/30/20 11:30 Trazodone HCl (Desyrel) 50 mg QHSP PRN PO INSOMNIA 08/30/20 04:00 09/03/20 21:55 Allergies Coded Allergies: naloxone (Verified Allergy, Unknown, rash, 08/28/20) BUBBA LEYVA DO Sep 04, 2020 09:45
[2020-09-04] MEDS: GABAPENTIN 400 MG CAP PO SCH ×3 (10:06→22:14)
[2020-09-04] MEDS: LORATADINE 10 MG TAB PO SCH (10:06)
[2020-09-04] MEDS: FLUoxetine 20 MG CAP PO SCH (10:06)
[2020-09-04 16:06] VITALS: BP 117/70
[2020-09-04] MEDS: OLANZapine ORAL DISINTEGRATING TAB 5MG PO SCH (22:13)
[2020-09-05 06:29] VITALS: BP 118/76
[2020-09-05] MEDS: NICOTINE 21MG/24HR 1 EA TRANSDERMAL TD SCH (09:00)
[2020-09-05] MEDS: GABAPENTIN 400 MG CAP PO SCH ×3 (09:30→21:00)
[2020-09-05] MEDS: LORATADINE 10 MG TAB PO SCH (09:30)
[2020-09-05] MEDS: FLUoxetine 20 MG CAP PO SCH (09:30)
--- NOTE | 2020-09-05 09:46 | MHIPN ---
DATE: 09/03/2020 The patient today states that he is doing fine. He says he slept good. He has no complaints. MENTAL STATUS EXAMINATION: This patient is alert and oriented times three. Eye contact is poor. Psychomotor activity is normal. There is no formal thought disorder noted. Affect is flat. He denies it but appears to be responding to internal stimuli. He denies suicidal or homicidal ideations. Insight and judgment is poor. DIAGNOSIS: Unspecified psychotic disorder. TREATMENT PLAN: The patient remains psychotic with poor insight and judgment. We will continue to monitor him and titrate medications as indicated. VALERIED
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
[2020-09-05 16:41] VITALS: BP 126/76
[2020-09-05] MEDS: OLANZapine ORAL DISINTEGRATING TAB 5MG PO SCH (21:00)
[2020-09-06 06:33] VITALS: BP 138/90
[2020-09-06] MEDS: GABAPENTIN 400 MG CAP PO SCH ×3 (09:08→20:22)
[2020-09-06] MEDS: OLANZapine ORAL DISINTEGRATING TAB 5MG PO SCH ×2 (09:08→20:22)
[2020-09-06] MEDS: LORATADINE 10 MG TAB PO SCH (09:08)
[2020-09-06] MEDS: FLUoxetine 20 MG CAP PO SCH (09:08)
[2020-09-06] MEDS: NICOTINE 21MG/24HR 1 EA TRANSDERMAL TD SCH (09:08)
--- NOTE | 2020-09-06 10:57 | MHIPNPDOC ---
[facility] Progress Note Progress Note DATE OF SERVICE: 09/06/20 Subjective HPI: The patient is attempted to be met with today. However, he is still heavily sedated. He arouses only for a quick moment for falling back asleep. He's sleeping comfortably staff report that he is up later in the day and generally engages but is still quite paranoid. Objective Behavior: Sleeping quietly. Awoken but falls asleep quickly. 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 He is still quite psychotic by report and will need continued treatment. Vital Signs Vital Signs Date Time Temp Pulse Resp B/P (MAP) Pulse Ox O2 Delivery O2 Flow Rate FiO2 09/06/20 06:33 97.2 82 18 138/90 (106) 09/04/20 06:34 97 Room Air Current Medications Current Medications Medications (Trade) Dose Ordered Sig/Roel Route PRN Reason Start Time Stop Time Status Last Admin Dose Admin Acetaminophen (Tylenol Tab) 650 mg Q6HP PRN PO HEADACHE or DISCOMFORT 08/30/20 04:00 Al Hydrox/Mg Hydrox/Simethicone (Mylanta) 30 ml Q4HP PRN PO HEARTBURN/INDIGESTION 08/30/20 04:00 Fluoxetine HCl (PROzac) 20 mg DAILY PO 08/30/20 09:00 09/06/20 09:08 Gabapentin (Neurontin) 800 mg TID PO 08/30/20 09:00 09/06/20 09:08 Home Med (Med Rec Complete!) ASDIRECTED XX 08/29/20 19:00 08/29/20 18:50 DC Loratadine (Claritin) 10 mg DAILY PO 08/30/20 09:00 09/06/20 09:08 Magnesium Hydroxide (Milk Of Magnesia) 30 ml DAILYPRN PRN PO CONSTIPATION 08/30/20 04:00 Nicotine (Nicoderm Cq 21mg) 1 patch DAILY TD 08/31/20 09:00 09/06/20 09:08 Olanzapine (ZyPREXA ZYDIS) 5 mg Q4HP PRN PO ANXIETY/AGITATION 08/30/20 04:15 09/01/20 01:30 Olanzapine (ZyPREXA ZYDIS) 5 mg QHS PO 10/7/20 21:00 09/05/20 11:39 DC 09/04/20 22:13 Olanzapine (ZyPREXA ZYDIS) 10 mg BID PO 09/05/20 21:00 09/06/20 09:08 Ondansetron HCl (Zofran) 8 mg BID PRN PO NAUSEA OR VOMITING 08/30/20 11:30 Sumatriptan Succinate (Imitrex) 50 mg ASDIRECTED PRN PO MIGRAINE 08/30/20 11:30 Trazodone HCl (Desyrel) 50 mg QHSP PRN PO INSOMNIA 08/30/20 04:00 09/03/20 21:55 Allergies Coded Allergies: naloxone (Verified Allergy, Unknown, rash, 08/28/20) BUBBA LEYVA DO Sep 06, 2020 10:57
[2020-09-06 16:52] VITALS: BP 121/72
[2020-09-06] MEDS: traZODone 50 MG TAB PO PRN (20:22)
[2020-09-07 06:31] VITALS: BP 146/84
[2020-09-07] MEDS: LORATADINE 10 MG TAB PO SCH (08:54)
[2020-09-07] MEDS: GABAPENTIN 400 MG CAP PO SCH ×3 (08:55→20:23)
[2020-09-07] MEDS: FLUoxetine 20 MG CAP PO SCH (08:55)
[2020-09-07] MEDS: OLANZapine ORAL DISINTEGRATING TAB 5MG PO SCH ×2 (08:55→20:23)
[2020-09-07] MEDS: NICOTINE 21MG/24HR 1 EA TRANSDERMAL TD SCH (08:56)
--- NOTE | 2020-09-07 09:41 | MHIPNPDOC ---
[facility] Progress Note Progress Note DATE OF SERVICE: 09/07/20 Subjective HPI: Willian presents today for concerns regarding his psych issues. The patient is met with today. However, he's quite terse and primarily states that he is fine and that there're no issues. However, he is quite flat in effect, isolative, but less bizarre and paranoid than he had been prior. MEDICATIONS: The patient reports they feel the medication better, and is less sleepy. Objective Affect: Flat. Cognition: Appears to be more intact. Alert, Attentive, and Oriented to person, place, time. Thought Form: Little reactivity but more linear, however, quite guarded during discussion. Associations appears intact. Judgement: Poor. Insight: Poor. 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 Will likely need more time for treatment as he is still sitting signs of psychosis. Vital Signs Vital Signs Date Time Temp Pulse Resp B/P (MAP) Pulse Ox O2 Delivery O2 Flow Rate FiO2 09/07/20 06:31 97.8 89 16 146/84 (104) 09/04/20 06:34 97 Room Air Current Medications Current Medications Medications (Trade) Dose Ordered Sig/Roel Route PRN Reason Start Time Stop Time Status Last Admin Dose Admin Acetaminophen (Tylenol Tab) 650 mg Q6HP PRN PO HEADACHE or DISCOMFORT 08/30/20 04:00 Al Hydrox/Mg Hydrox/Simethicone (Mylanta) 30 ml Q4HP PRN PO HEARTBURN/INDIGESTION 08/30/20 04:00 Fluoxetine HCl (PROzac) 20 mg DAILY PO 08/30/20 09:00 09/07/20 08:55 Gabapentin (Neurontin) 800 mg TID PO 08/30/20 09:00 09/07/20 08:55 Home Med (Med Rec Complete!) ASDIRECTED XX 08/29/20 19:00 08/29/20 18:50 DC Loratadine (Claritin) 10 mg DAILY PO 08/30/20 09:00 09/07/20 08:54 Magnesium Hydroxide (Milk Of Magnesia) 30 ml DAILYPRN PRN PO CONSTIPATION 08/30/20 04:00 Nicotine (Nicoderm Cq 21mg) 1 patch DAILY TD 08/31/20 09:00 09/07/20 08:56 Olanzapine (ZyPREXA ZYDIS) 5 mg BID PO 09/06/20 21:00 09/07/20 08:55 Olanzapine (ZyPREXA ZYDIS) 5 mg Q4HP PRN PO ANXIETY/AGITATION 08/30/20 04:15 09/01/20 01:30 Olanzapine (ZyPREXA ZYDIS) 5 mg QHS PO 08/30/20 21:00 09/05/20 11:39 DC 09/04/20 22:13 Olanzapine (ZyPREXA ZYDIS) 10 mg BID PO 09/05/20 21:00 09/06/20 11:41 DC 09/06/20 09:08 Ondansetron HCl (Zofran) 8 mg BID PRN PO NAUSEA OR VOMITING 08/30/20 11:30 Sumatriptan Succinate (Imitrex) 50 mg ASDIRECTED PRN PO MIGRAINE 08/30/20 11:30 Trazodone HCl (Desyrel) 50 mg QHSP PRN PO INSOMNIA 08/30/20 04:00 09/06/20 20:22 Allergies Coded Allergies: naloxone (Verified Allergy, Unknown, rash, 08/28/20) BUBBA LEYVA DO Sep 07, 2020 09:41
[2020-09-07] MEDS: traZODone 50 MG TAB PO PRN (20:23)
[2020-09-08 07:23] VITALS: BP 130/80
[2020-09-08] MEDS: NICOTINE 21MG/24HR 1 EA TRANSDERMAL TD SCH (08:50)
[2020-09-08] MEDS: LORATADINE 10 MG TAB PO SCH (08:52)
[2020-09-08] MEDS: FLUoxetine 20 MG CAP PO SCH (08:53)
[2020-09-08] MEDS: GABAPENTIN 400 MG CAP PO SCH ×3 (08:54→21:18)
[2020-09-08] MEDS: OLANZapine ORAL DISINTEGRATING TAB 5MG PO SCH ×2 (08:55→21:18)
--- NOTE | 2020-09-08 10:31 | MHIPNPDOC ---
[facility] Progress Note Progress Note DATE OF SERVICE: 09/08/20 Subjective HPI: Willian is met with, however, he appears heavily flat and quite isolative throughout the day. He appears quite internally preoccupied at times and states everythings fine, but otherwise does not protest being here. He reports that he feels Zyprexa is helpful, but cant describe why. He has a very sparse conversation. and is not able to engage in a realistic discussion. Objective Appearance: Well groomed. Well nourished. Appears to be stated age. Speech: Sparse. Thought Form: Paucity of thought. Guarded and flat. Thought Content: No evidence of aggressive or homicidal ideation. No evidence of suicidal ideation. No evidence of delusions. No thoughts of self harm. Judgement: Poor. Insight: Poor. 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 Vital Signs Vital Signs Date Time Temp Pulse Resp B/P (MAP) Pulse Ox O2 Delivery O2 Flow Rate FiO2 09/08/20 07:23 97.2 82 14 130/80 (97) Room Air 09/04/20 06:34 97 Current Medications Current Medications Medications (Trade) Dose Ordered Sig/Roel Route PRN Reason Start Time Stop Time Status Last Admin Dose Admin Acetaminophen (Tylenol Tab) 650 mg Q6HP PRN PO HEADACHE or DISCOMFORT 08/30/20 04:00 Al Hydrox/Mg Hydrox/Simethicone (Mylanta) 30 ml Q4HP PRN PO HEARTBURN/INDIGESTION 08/30/20 04:00 Fluoxetine HCl (PROzac) 20 mg DAILY PO 08/30/20 09:00 09/08/20 08:53 Gabapentin (Neurontin) 800 mg TID PO 08/30/20 09:00 09/08/20 08:54 Home Med (Med Rec Complete!) ASDIRECTED XX 08/29/20 19:00 08/29/20 18:50 DC Loratadine (Claritin) 10 mg DAILY PO 08/30/20 09:00 09/08/20 08:52 Magnesium Hydroxide (Milk Of Magnesia) 30 ml DAILYPRN PRN PO CONSTIPATION 08/30/20 04:00 Nicotine (Nicoderm Cq 21mg) 1 patch DAILY TD 08/31/20 09:00 09/08/20 08:50 Olanzapine (ZyPREXA ZYDIS) 5 mg BID PO 09/06/20 21:00 09/08/20 08:55 Olanzapine (ZyPREXA ZYDIS) 5 mg Q4HP PRN PO ANXIETY/AGITATION 08/30/20 04:15 09/01/20 01:30 Olanzapine (ZyPREXA ZYDIS) 5 mg QHS PO 08/30/20 21:00 09/05/20 11:39 DC 09/04/20 22:13 Olanzapine (ZyPREXA ZYDIS) 10 mg BID PO 09/05/20 21:00 09/06/20 11:41 DC 09/06/20 09:08 Ondansetron HCl (Zofran) 8 mg BID PRN PO NAUSEA OR VOMITING 08/30/20 11:30 Sumatriptan Succinate (Imitrex) 50 mg ASDIRECTED PRN PO MIGRAINE 08/30/20 11:30 Trazodone HCl (Desyrel) 50 mg QHSP PRN PO INSOMNIA 08/30/20 04:00 09/07/20 20:23 Allergies Coded Allergies: naloxone (Verified Allergy, Unknown, rash, 08/28/20) BUBBA LEYVA DO Sep 08, 2020 10:31
[2020-09-08] MEDS: OLANZapine ORAL DISINTEGRATING TAB 5MG PO PRN (14:24)
[2020-09-08 16:09] VITALS: BP 133/77
[2020-09-08] MEDS: traZODone 50 MG TAB PO PRN (21:18)
[2020-09-09 06:29] VITALS: BP 112/82
[2020-09-09] MEDS: FLUoxetine 20 MG CAP PO SCH (09:16)
[2020-09-09] MEDS: NICOTINE 21MG/24HR 1 EA TRANSDERMAL TD SCH (09:16)
[2020-09-09] MEDS: GABAPENTIN 400 MG CAP PO SCH ×3 (09:16→22:11)
[2020-09-09] MEDS: OLANZapine ORAL DISINTEGRATING TAB 5MG PO SCH ×2 (09:16→22:11)
[2020-09-09] MEDS: LORATADINE 10 MG TAB PO SCH (09:16)
[2020-09-09 16:29] VITALS: BP 134/73
[2020-09-09] MEDS: traZODone 50 MG TAB PO PRN (22:11)
[2020-09-10 06:29] VITALS: BP 144/79
[2020-09-10] MEDS: FLUoxetine 20 MG CAP PO SCH (09:20)
[2020-09-10] MEDS: LORATADINE 10 MG TAB PO SCH (09:20)
[2020-09-10] MEDS: OLANZapine ORAL DISINTEGRATING TAB 5MG PO SCH ×2 (09:20→21:00)
[2020-09-10] MEDS: NICOTINE 21MG/24HR 1 EA TRANSDERMAL TD SCH (09:21)
[2020-09-10] MEDS: GABAPENTIN 400 MG CAP PO SCH ×3 (09:21→21:00)
[2020-09-10] MEDS: OLANZapine ORAL DISINTEGRATING TAB 5MG PO PRN (16:27)
[2020-09-10 17:08] VITALS: BP 140/72
[2020-09-11 06:48] VITALS: BP 125/58
[2020-09-11] MEDS: LORATADINE 10 MG TAB PO SCH (08:30)
[2020-09-11] MEDS: FLUoxetine 20 MG CAP PO SCH (08:30)
[2020-09-11] MEDS: NICOTINE 21MG/24HR 1 EA TRANSDERMAL TD SCH (08:31)
[2020-09-11] MEDS: GABAPENTIN 400 MG CAP PO SCH ×3 (08:31→21:00)
[2020-09-11] MEDS: OLANZapine ORAL DISINTEGRATING TAB 5MG PO SCH ×2 (08:31→21:00)
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
[2020-09-11] MEDS: ACETAMINOPHEN TAB 650MG DOSE (2X325MG) PO PRN (11:08)
[2020-09-11 17:30] VITALS: BP 132/66
[2020-09-12 06:26] VITALS: BP 169/89
[2020-09-12] MEDS: OLANZapine ORAL DISINTEGRATING TAB 5MG PO SCH (08:18)
[2020-09-12] MEDS: LORATADINE 10 MG TAB PO SCH (08:18)
[2020-09-12] MEDS: ACETAMINOPHEN TAB 650MG DOSE (2X325MG) PO PRN (08:19)
[2020-09-12] MEDS: FLUoxetine 20 MG CAP PO SCH (08:19)
[2020-09-12] MEDS: GABAPENTIN 400 MG CAP PO SCH (08:19)
[2020-09-12] MEDS: NICOTINE 21MG/24HR 1 EA TRANSDERMAL TD SCH (09:00)
[2020-09-12] MEDS ORDERED: GABA800T4 PO (12:32)
[2020-09-12] MEDS ORDERED: ZYPR5TAB2 PO (12:32)
--- NOTE | 2020-09-12 16:00 | MHDSPDOC ---
[facility] Discharge Summary Discharge Summary DATE OF ADMISSION: Aug 30, 2020 at 03:56 DATE OF DISCHARGE: September 12, 2020 at 1548 DISCHARGE DIAGNOSES: 1. Unspecified Psychotic Disorder REASON FOR ADMISSION: Patient was seen in the ED on 08/28/20 and admitted to medical floor and signed out AMA on 08/29/20. He walked around [place] after leaveing the hospital and then drove himself back to the ED for suicidal thoughts. He had complained of depression, anxiety, hopelessness, poor concentration poor appetite and decreased energy. He appeared to be confused with poor responses or delayed responses in the ED. CONSULTANTS INVOLVED: See Medical Consultation by Medical Provider TREATMENT AND PROGRESS ON THE UNIT :TREATMENT AND PROGRESS ON THE UNIT : Patient was admitted to the [facility] on a 9.39 legal status he was afforded the following treatment modalities: 1) Individual Therapy 2) Group Therapy 3) Medication Management 4) Milieu Therapy 5) Safe Environment HOSPITAL COURSE: Patient was admitted to [facility] on a 9.39 legal status. He was started on Zyprexa for psychotic symptoms with good effects/ DISCHARGE ASSESSMENT: Patient presents as alert and oriented, calm and cooperative in the interview. He reports feeling improved and denies depression, denies voices, and states his anxiety is decreased. Reports sleeping is improved, "feels better" He states he is going to stay with his grandparents and then return to his apartments. Reports that his grandparents and cousin are good supports for him. MENTAL STATUS EXAMINATION ON DISCHARGE: Patient is a 24-year old Single, male, who is admitted to [facility] for psychotic symptoms. He is calm and cooperative in the interview. Patient is hoping for discharge today Speech: Is normal rate, tone and volume Language skills are intact Thought processes including: linear and goal oriented Thought content: denies depression, suicidal/homicidal ideation, planning or intent. He is not anxious, denies abnormal psychotic symptoms Abstract reasoning, and computation: Fair Description of associations: None notes, patient denies Description of abnormal or psychotic thoughts: None notes, patient denies Judgment: fair Insight: fair Orientation: alert and oriented to persona, place, time and situation Recent and remote memory: intact Attention span and concentration: fair Language: expansive Fund of knowledge: good Mood: Euthymic "Happy and Grateful to be going home" Affect: constricted/flat MEDICATIONS ON DISCHARGE: See Medication Reconciliation; I questioned the patient Alprazolam as a home medication, he states that he had been taking that and that he "forgot" to tell nurses about this order. This was noted as a medication that was at the pharmacy and had not been picked up. Patient was continued on this although had not been on it while hospitalized. He was however not continued on the Buprenorphine as I felt that Zyprexa may be counteracting. I reinforced with the patient that he needs to speak with his psychiatrist about this continuation. PLAN/FOLLOWUP ARRANGEMENTS: See Discharge Planners Notes The amount of time spent in the coordination of care for this patient was approximately 25 minutes. Vital Signs/I&Os Vital Signs Date Time Temp Pulse Resp B/P (MAP) Pulse Ox O2 Delivery O2 Flow Rate FiO2 09/12/20 06:26 97.6 76 16 169/89 (115) 97 Nasal Cannula Medications Scheduled Fluoxetine Hcl (Fluoxetine HCl) 20 Mg Capsule, 20 MG PO DAILY, (Reported) WAITING FOR P/U AT [facility] Gabapentin (Gabapentin) 800 Mg Tablet, 800 MG PO TID for Pain, #21 Lisdexamfetamine Dimesylate (Vyvanse) 50 Mg Capsule, 50 MG PO DAILY, (Reported) Loratadine (Loratadine) 10 Mg Tablet, 10 MG PO DAILY, (Reported) Olanzapine (Zyprexa) 5 Mg Tablet, 5 MG PO BID for antipsychotic, #7 Trazodone HCl (Trazodone HCl) 100 Mg Tablet, 100 MG PO QHS, (Reported) WAITING FOR P/U AT [facility] Scheduled PRN Alprazolam (Alprazolam) 2 Mg Tablet, 2 MG PO BID PRN for ANXIETY, (Reported) WAITING FOR P/U AT [facility] Ondansetron HCl (Ondansetron HCl) 8 Mg Tablet, 8 MG PO BID PRN for NAUSEA OR VOMITING, (Reported) Sumatriptan Succinate (Sumatriptan Succinate) 50 Mg Tablet, 50 MG PO ASDIRECTED PRN for MIGRAINE, (Reported) Allergies Coded Allergies: naloxone (Verified Allergy, Unknown, rash, 08/28/20) DARYL MORRIS NP Sep 12, 2020 15:50
== END 2020-09-12 15:25 | disposition home or self-care (01) | DRG 750 ==
LOC: M ED 17:21 → M ED INP 08-30 03:56 → M PSY 08-30 04:57
PROVIDERS: ADMIT Psychiatry & Neurology Psychiatry; ATTEND Psychiatry & Neurology Addiction Medicine
DX: F20.9 Schizophrenia, unspecified (principal); Z79.899 Other long term (current) drug therapy; Z88.8 Allergy status to other drugs, medicaments and biological substances; F19.10 Other psychoactive substance abuse, uncomplicated